=== PATIENT | female | born 1965 | race Caucasian/White ===

== ENCOUNTER 2024-01-29 12:05 | Outpatient (CLI) | payer MEDICARE, MEDICAID | END 2024-01-29 23:59 | disposition home or self-care (01) | LOC: MRI 12:05 | PROVIDERS: ATTEND Nurse Practitioner Family | DX: M51.16 Intervertebral disc disorders with radiculopathy, lumbar region (principal); M48.061 Spinal stenosis, lumbar region without neurogenic claudication; M54.50 Low back pain, unspecified; M47.26 Other spondylosis with radiculopathy, lumbar region; M43.17 Spondylolisthesis, lumbosacral region | CPT/HCPCS: 72148 ==